=== PATIENT | female | born 1960 | race Caucasian/White ===

== ENCOUNTER → 2025-05-22 | Outpatient (CLI) | payer MEDICARE, MEDICAID, SELFPAY ==
--- NOTE | 2025-05-22 09:54 | XR_ITS ---
Examination: Bilateral wrists 6 views TECHNIQUE: AP oblique lateral each wrist total 6 views Date and time: May 22, 2025 1002 hours INDICATIONS: Bilateral wrist swelling months. FINDINGS: Bilateral moderate to advanced osteoarthritis first carpometacarpal joints Mild osteoarthritis radiocarpal joints. No fracture or dislocation involving either wrist. No avascular necrosis. No erosive arthritis IMPRESSION: Osteoarthritis as above
--- NOTE | 2025-05-22 09:54 | XR_ITS ---
Examination: Bilateral hands, 6 views. Technique: AP, Oblique, Lateral each hand total 6 views Date and time of exam: May 22, 2025 0956 hours INDICATIONS: Swollen hands beginning one year ago Findings: Moderate osteopenia Osteoarthritis involving the distal interphalangeal joints second through fifth digits, moderate as well as interphalangeal joints first digits Moderate osteoarthritis bilateral carpometacarpal joints Moderate osteoarthritis right first metacarpophalangeal joint. No erosive arthritis. No fractures IMPRESSION: Osteoarthritis as above
== END | disposition home or self-care (01) ==
PROVIDERS: PCP Student in an Organized Health Care Education/Training Program; Referring Provider Nurse Practitioner Gerontology; Visit Provider Nurse Practitioner Gerontology
DX: M18.0 Bilateral primary osteoarthritis of first carpometacarpal joints (principal)
CPT/HCPCS: 73110; 73130